=== PATIENT | female | born 1990 | race Caucasian/White ===

== ENCOUNTER 2023-06-19 10:54 | Emergency (ER) | payer MEDICAID ==
[~2023-06-19] VITALS: Ht 162.6 cm; Wt 71.7 kg
[2023-06-19] MEDS ORDERED: ACETAMINOPHEN ES 500 MG TABLET PO ONE (11:15)
[2023-06-19] MEDS ORDERED: ACETAMINOPHEN ES 500 MG TABLET ONE (11:17)
[2023-06-19] MEDS ORDERED: IBUPROFEN 600 MG TABLET ONE (11:24)
[2023-06-19] MEDS ORDERED: IBUPROFEN 600 MG TABLET PO ONE (11:30)
[2023-06-19 11:57] VITALS: BP 122/79; TEMP 98.5; O2SAT 96
== END 2023-06-19 11:57 | disposition home or self-care (01) ==
LOC: ER 10:54
DX: S20.211A Contusion of right front wall of thorax, initial encounter (principal); Z88.1 Allergy status to other antibiotic agents; Z88.8 Allergy status to other drugs, medicaments and biological substances; W10.9XXA Fall (on) (from) unspecified stairs and steps, initial encounter; Y93.89 Activity, other specified; Y92.89 Other specified places as the place of occurrence of the external cause; Y99.8 Other external cause status
CPT/HCPCS: 71101; A4663; A9150

== ENCOUNTER → 2025-02-18 | Emergency (ER) | payer MEDICAID ==
[~2025-02-18] VITALS: Ht 162.6 cm; Wt 63.5 kg
[~2025-02-18] MED LIST: IBUP-1955 PO; IBUPROFEN 400 MG TABLET ONE; KETOROLAC TROMETHAMINE 15 MG INJ ONE; METOCLOPRAMIDE HCL 10 MG/2 ML VIAL ONE; ONDA4TAB5 PO; diphenhydrAMINE 50 MG/1 ML VIAL ONE
[2025-02-18] MEDS: METOCLOPRAMIDE HCL 10 MG/2 ML VIAL IV ONE (20:35)
[2025-02-18] MEDS: IV NORMAL SALINE 500 ML BAG IV ONE (20:35)
[2025-02-18] MEDS: KETOROLAC TROMETHAMINE 15 MG INJ IVP ONE (20:35)
[2025-02-18] MEDS: diphenhydrAMINE 50 MG/1 ML VIAL IV ONE (20:35)
[2025-02-18 20:44] LABS: *BILIRUBIN,URIN NEGATIVE (NEGATIVE); *BLOOD, URINE NEGATIVE (NEGATIVE); *CLARITY,URINE CLEAR (CLEAR); *COLOR,URINE YELLOW (YELLOW); *KETONES,URINE NEGATIVE (NEGATIVE); *PROTEIN,URINE NEGATIVE (NEGATIVE); *UROBILINOGEN,URINE 0.2 E.U./dl (NORMAL); LEUKOCYTE ESTERASE ,URINE 1+ (NEGATIVE); NITRITE, URINE NEGATIVE (NEGATIVE); UGLUCOSE NEGATIVE (NEGATIVE)
[2025-02-18 20:45] LABS: BASOPHILS % (AUTO) 0.5 % (0.0-2.0); EOSINOPHILS # (AUTO) 0.2 K/uL (0.0-0.7); EOSINOPHILS % (AUTO) 3.7 % (0.0-7.0); HEMATOCRIT 40.7 % (31.2-41.9); HEMOGLOBIN 13.7 g/dL (10.9-14.3); LYMPHOCYTES # (AUTO) 2.7 K/uL (0.8-4.8); LYMPHOCYTES % (AUTO) 53.3 % (20.5-51.5); MEAN CORPUSCULAR HGB CONC 34 g/dL (32.3-35.6); MEAN CORPUSCULAR VOLUME 89.2 fL (75.5-95.3); MONOCYTES # (AUTO) 0.2 K/uL (0.1-1.30); MONOCYTES % (AUTO) 4.6 % (0.0-11.0); NEUTROPHILS # (AUTO) 1.9 K/uL (1.8-8.9); NEUTROPHILS % (AUTO) 37.9 % (38.5-71.5); PLATELET COUNT (AUTO) 305 K/uL (179-408); RED BLOOD CELL COUNT(AUTO) 4.57 MIL/uL (3.63-4.92); RED CELL DISTRIBUTION WIDTH 12.6 % (12.3-17.7)
[2025-02-18 20:46] LABS: DIFFERENTIAL COMMENT 1
[2025-02-18 20:47] LABS: *URINE HCG, QUAL NEGATIVE (NEGATIVE)
[2025-02-18 20:48] LABS: CALCIUM 10.1 mg/dL (8.5-10.1); CARBON DIOXIDE 25 mmol/L (21-32); CHLORIDE 106 mmol/L (98-107); CREATININE 0.7 mg/dL (0.6-1.3); GLUCOSE 78 mg/dL (74-106); SODIUM SERUM 143 mmol/L (136-145); UREA NITROGEN, BLOOD 6 mg/dL (7-18)
[2025-02-18 20:55] LABS: C-REACTIVE PROTEIN < 0.05 mg/dL (0.00-0.30)
[2025-02-18 21:03] LABS: ALANINE AMINOTRANSFERASE 44 U/L (14-59); ALBUMIN 4.1 g/dL (3.4-5.0); ALKALINE PHOSPHATASE 58 U/L (50-136); ASPARTATE AMINOTRANSFERASE 22 U/L (15-37); BILIRUBIN,TOTAL 0.4 mg/dL (0.2-1.0); MAGNESIUM 1.9 mg/dL (1.8-2.4); TOTAL PROTEIN, SERUM 7.7 g/dL (6.4-8.2)
[2025-02-18 21:07] LABS: BACTERIA,URINE FEW /HPF (NONE SEEN); RBC,URINE 0-3 /HPF (0-3); SQUAMOUS EPITHELIAL CELL,UR FEW /HPF (NONE SEEN)
[2025-02-18 21:53] VITALS: BP 119/83; TEMP 98; O2SAT 100
== END | disposition home or self-care (01) ==
LOC: ER 20:10
DX: R51.9 Headache, unspecified (principal); R10.9 Unspecified abdominal pain; F17.210 Nicotine dependence, cigarettes, uncomplicated; Z88.0 Allergy status to penicillin
CPT/HCPCS: 99284; 96374; 96375; 96361; 80053; 81001; 84703; 83735; 85025; 86140; 87086; 36415; J1885; J1200; J2765; J7040; A4606; A4663

== ENCOUNTER 2025-08-29 08:15 | Emergency (ER) | payer MEDICAID ==
[~2025-08-29] VITALS: Ht 162.6 cm; Wt 66.7 kg
[~2025-08-29 08:15] MED LIST changes: -IBUP-1955 PO; +IBUP-2760 PO; -IBUPROFEN 400 MG TABLET ONE; -KETOROLAC TROMETHAMINE 15 MG INJ ONE; -METOCLOPRAMIDE HCL 10 MG/2 ML VIAL ONE; -diphenhydrAMINE 50 MG/1 ML VIAL ONE
[2025-08-29 08:27] VITALS: BP 109/66
[2025-08-29] MEDS ORDERED: IBUP600T51 PO (09:02)
[2025-08-29] MEDS ORDERED: MUPI22OI2 TP (09:02)
[2025-08-29] MEDS ORDERED: CLIN-188 PO (09:02)
[2025-08-29] MEDS ORDERED: CLOT15CR27 TP (09:02)
[2025-08-29 09:13] VITALS: BP 109/66; O2SAT 99
== END 2025-08-29 09:13 | disposition home or self-care (01) ==
LOC: ER 08:15
DX: L73.9 Follicular disorder, unspecified (principal); F17.210 Nicotine dependence, cigarettes, uncomplicated; M94.0 Chondrocostal junction syndrome [Tietze]; N63.10 Unspecified lump in the right breast, unspecified quadrant; Z88.0 Allergy status to penicillin; Z98.82 Breast implant status
CPT/HCPCS: A4606; A4663